=== PATIENT | male | born 1960 | race Caucasian/White ===

== ENCOUNTER 2016-08-04 11:26 | Emergency (ER) | payer OTHER ==
[~2016-08-04] VITALS: Ht 182.9 cm; Wt 90.7 kg
[2016-08-04 13:55] VITALS: BP 182/112
[2016-08-04] MEDS ORDERED: CARVedilol 12.5 MG TAB PO ONE (14:30)
[2016-08-04] MEDS ORDERED: LISINOPRIL 10 MG TAB PO ONE (14:30)
[2016-08-04] MEDS ORDERED: LISI10TA4 PO (15:23)
[2016-08-04] MEDS ORDERED: CORE12.5 PO (15:23)
--- NOTE | 2016-08-04 15:44 | REP ---
RIGHT HAND SERIES: Four views. HISTORY: Trauma. COMPARISON STUDY: February 17, 2011. FINDINGS: There is dorsal metacarpal soft tissue swelling visible on the lateral radiograph. Overall mineralization pattern is normal. No fracture, subluxation or opaque foreign body is seen. IMPRESSION: Dorsal soft tissue swelling. No fracture seen. Signed by Leon Sapp MD 08/04/2016 03:43 P
== END 2016-08-04 15:58 | disposition home or self-care (01) ==
LOC: M ED 12:05
DX: S01.01XA Laceration without foreign body of scalp, initial encounter (principal); S60.221A Contusion of right hand, initial encounter; I10 Essential (primary) hypertension; W20.8XXA Other cause of strike by thrown, projected or falling object, initial encounter; Y92.89 Other specified places as the place of occurrence of the external cause; Y93.89 Activity, other specified; Y99.0 Civilian activity done for income or pay